=== PATIENT | female | born 1985 | race Caucasian/White ===

== ENCOUNTER 2017-02-09 17:00 | Emergency (ER) | payer BC ==
[2017-02-09 17:06] VITALS: BP 120/75
--- NOTE | 2017-02-09 17:42 | ER Document Report ---
ED General - General Chief Complaint: Back Pain Stated Complaint: BACK PAIN Time Seen by Provider: 02/09/17 17:24 Notes: 31 yo female c/o left upper back pain since yesterday. onset of pain was acute and sharp. pain is aggrevated with movement and deep breathing. pt denies fever or cough, no recent illness. Pt does have hx/o asthma and is a former smoker. pt denies any trauma, no shortness of breath TRAVEL OUTSIDE OF THE [place] IN LAST 30 DAYS: No - HPI Onset/Duration: Sudden Quality of pain: Sharp Associated symptoms: Hurts to breath Exacerbated by: Movement, Coughing, Deep breathing Relieved by: Denies Similar symptoms previously: No Recently seen / treated by doctor: No Past Medical History - General Information source: Patient - Social History Smoking Status: Former Smoker Frequency of alcohol use: Social Drug Abuse: None Lives with: Family Family History: Reviewed & Not Pertinent Renal/ Medical History: Denies: Hx Peritoneal Dialysis Review of Systems - Review of Systems Constitutional: No symptoms reported EENT: No symptoms reported Cardiovascular: No symptoms reported Respiratory: See HPI Gastrointestinal: No symptoms reported Genitourinary: No symptoms reported Female Genitourinary: No symptoms reported Musculoskeletal: No symptoms reported Skin: No symptoms reported Hematologic/Lymphatic: No symptoms reported Neurological/Psychological: No symptoms reported Physical Exam - Vital signs Vitals: Temp Pulse Resp BP Pulse Ox 99.5 F 90 16 120/75 98 02/09/17 17:03 02/09/17 17:03 02/09/17 17:03 02/09/17 17:03 02/09/17 17:03 Interpretation: Normal - General General appearance: Appears well, Alert - HEENT Head: Normocephalic, Atraumatic Eyes: Normal Pupils: PERRL - Respiratory Respiratory status: No respiratory distress Chest status: Nontender Breath sounds: Normal Chest palpation: Normal - Cardiovascular Rhythm: Regular Heart sounds: Normal auscultation Murmur: No - Abdominal Inspection: Normal Distension: No distension Bowel sounds: Normal Tenderness: Nontender Organomegaly: No organomegaly - Back Back: Normal - no reproducable pain. no vertebral tenderness., Nontender - Extremities General upper extremity: Normal inspection, Nontender, Normal color, Normal ROM , Normal temperature General lower extremity: Normal inspection, Nontender, Normal color, Normal ROM , Normal temperature, Normal weight bearing. No: Rod's sign - Neurological Neuro grossly intact: Yes Cognition: Normal Orientation: AAOx4 [place] Coma Scale Eye Opening: Spontaneous [place] Coma Scale Verbal: Oriented [place] Coma Scale Motor: Obeys Commands [place] Coma Scale Total: 15 Speech: Normal Motor strength normal: LUE, RUE, LLE, RLE Sensory: Normal - Psychological Associated symptoms: Normal affect, Normal mood - Skin Skin Temperature: Warm Skin Moisture: Dry Skin Color: Normal Course - Re-evaluation Re-evalutation: 02/09/17 18:11 Left RiB and chest xray are negative. these results were reviewed with patient. I suspect low risk of potentially life-threatening cardiac and pulmonary problems. Unclear cause of pt's upper back pain. Pt's H&P are most c /w an isolated musculoskeletal pain syndrome. I discussed low possibiltiy of thoracic disc herniation. There are no neurologic findings worrisome for cord impingement therefore no emergent imaging is indicated. Pt is able to MAEW. walks without difficulty. no difficulty with breathing. I will treat pt's pain with NSAID and muscle relaxant with close follow up with her primary care. pt agreeable with plan and stable for discharge - Vital Signs Vital signs: Temp Pulse Resp BP Pulse Ox 99.5 F 90 16 120/75 98 02/09/17 17:03 02/09/17 17:03 02/09/17 17:03 02/09/17 17:03 02/09/17 17:03 Discharge - Discharge Clinical Impression: Upper back pain on left side Condition: Stable Disposition: HOME, SELF-CARE Instructions: Ice Packs ([facility]), Warm Packs ([facility]), Chest Wall Pain ([facility]), Ibuprofen (General) ([facility]), Muscle Relaxers ([facility]) Additional Instructions: Your xray is negative for pneumonia, fractures or any life threatening conditions The cause of your pain is unclear, but most likely musculoskelatal in origin Alternate ice/heat to painful area Take anti-inflammatory medication and muscle relaxant as prescribed I encourage you to breathe deeply, even though it is painful Shallow breathing may increase your risk of developing a pneumonia If you develop a fever, cough, shortness of breath or worsening pain, return to ER Follow up with your primary care if pain persists Prescriptions: Ibuprofen [Motrin 800 Mg Tablet] 800 mg PO Q6H #20 tablet Methocarbamol [Robaxin] 1,000 mg PO Q6H PRN #30 tablet PRN Reason:
[2017-02-09] MEDS ORDERED: KETOROLAC TROMETHAMINE 60 MG/2 ML SDV IM ONE (18:08)
--- NOTE | 2017-02-09 18:30 | RADIOLOGY REPORT (SQ) ---
EXAM DESCRIPTION: RIBS LEFT W/PA CHEST COMPLETED DATE/TIME: 02/09/2017 6:03 pm REASON FOR STUDY: left chest wall pain COMPARISON: None. TECHNIQUE: Frontal view of the chest and additional views of the left ribs acquired. NUMBER OF VIEWS: PA chest, left ribs two views LIMITATIONS: None. FINDINGS: FRONTAL CXR: No pneumothorax. No pleural effusion. No atelectasis or infiltrates. RIBS: No displaced rib fractures. No lytic or blastic bony lesions. OTHER: No other significant finding. IMPRESSION: NO PNEUMOTHORAX. NO DISPLACED RIB FRACTURES. COMMENT: SITE OF TRAUMA/COMPLAINT MARKED/STAMP COMPLETED: No TECHNICAL DOCUMENTATION: JOB ID: [id number] [employer]- All Rights Reserved
== END 2017-02-09 18:47 | disposition home or self-care (01) ==
LOC: ER 17:00
DX: M54.6 Pain in thoracic spine (principal); M54.9 Dorsalgia, unspecified; Z87.891 Personal history of nicotine dependence
CPT/HCPCS: 99283; 96372; 71101; J1885